=== PATIENT | female | born 1965 | race American Indian/Alaskan Native ===

== ENCOUNTER 2017-07-14 09:20 | Emergency (ER) | payer SELFPAY ==
--- NOTE | 2017-07-14 10:13 | Emergency Department Report ---
ED ENT HPI - General Chief complaint: Earache Stated complaint: EAR BLOCKAGE/ACHING Time Seen by Provider: 07/14/17 09:30 Source: patient Mode of arrival: Ambulatory Limitations: No Limitations - History of Present Illness Initial comments: PT c/o earache for over a week. PT states she was seen in [place], [place] and given ear drops. PT states she has been using the ear drops but now her ear feels plugged up. PT states she does water aerobics and she has frequent OE and this does not feel like OE. MD complaint: ear pain -: Gradual, week(s) (1.5) Location: R ear Severity scale (0 -10): 3 Quality: stabbing Consistency: constant Improves with: none Worsens with: other (laying on R side ) Context- Ear: recent illness Associated Symptoms: denies: fever, toothache, pain with swallowing, sore throat , discharge from ear - Related Data Previous Rx's Medication Instructions Recorded Last Taken Type Amoxicillin 500 mg PO BID #20 capsule 07/14/17 Unknown Rx Allergies Allergy/AdvReac Type Severity Reaction Status Date / Time gabapentin Allergy Unknown Verified 07/14/17 09:29 lisinopril Allergy Unknown Verified 07/14/17 09:29 ED Dental HPI - General Chief complaint: Earache Stated complaint: EAR BLOCKAGE/ACHING Time Seen by Provider: 07/14/17 09:30 Source: patient Mode of arrival: Ambulatory Limitations: No Limitations - Related Data Previous Rx's Medication Instructions Recorded Last Taken Type Amoxicillin 500 mg PO BID #20 capsule 07/14/17 Unknown Rx Allergies Allergy/AdvReac Type Severity Reaction Status Date / Time gabapentin Allergy Unknown Verified 07/14/17 09:29 lisinopril Allergy Unknown Verified 07/14/17 09:29 ED Review of Systems ROS: Stated complaint: EAR BLOCKAGE/ACHING Other details as noted in HPI Comment: All other systems reviewed and negative Constitutional: denies: fever, malaise ENT: as per HPI, ear pain. denies: throat pain Cardiovascular: denies: chest pain Gastrointestinal: denies: vomiting Skin: denies: rash ED Past Medical Hx - Past Medical History Previous Medical History?: Yes Hx Hypertension: Yes Additional medical history: Back pain - Surgical History Past Surgical History?: Yes Additional Surgical History: 3 back surgeries, 1 right hip surgery, Neck surgery - Social History Smoking Status: Never Smoker Substance Use Type: Alcohol, Prescribed - Medications Home Medications: Home Medications Medication Instructions Recorded Confirmed Last Taken Type Amoxicillin 500 mg PO BID #20 capsule 07/14/17 Unknown Rx ED Physical Exam - General Limitations: No Limitations General appearance: alert, in no apparent distress - Head Head exam: Present: atraumatic, normocephalic, normal inspection - Eye Eye exam: Present: normal appearance, PERRL, EOMI. Absent: conjunctival injection - ENT ENT exam: Present: normal orophraynx, mucous membranes moist, normal external ear exam - Expanded ENT Exam Expanded TM/Canal exam: Erythema: Right TM, Bulging: Right TM, Effusion: Right TM, Loss of Landmarks: Right TM Mouth exam: Absent: drooling, trismus Throat exam: Positive: normal inspection. Negative: tonsillar erythema, tonsillomegaly, tonsillar exudate - Neck Neck exam: Present: normal inspection, full ROM. Absent: tenderness, lymphadenopathy - Respiratory Respiratory exam: Present: normal lung sounds bilaterally. Absent: respiratory distress, chest wall tenderness, accessory muscle use - Cardiovascular Cardiovascular Exam: Present: regular rate, normal rhythm, normal heart sounds - GI/Abdominal GI/Abdominal exam: Present: soft. Absent: tenderness - Extremities Exam Extremities exam: Present: normal inspection, full ROM - Back Exam Back exam: Present: normal inspection, full ROM. Absent: tenderness, CVA tenderness (R), CVA tenderness (L) - Neurological Exam Neurological exam: Present: alert, oriented X3, normal gait - Psychiatric Psychiatric exam: Present: normal affect, normal mood - Skin Skin exam: Present: warm, dry, intact, normal color ED Course Vital Signs 07/14/17 07/14/17 09:29 10:47 Temperature 98.4 F 98.3 F Pulse Rate 84 73 Respiratory 18 18 Rate Blood Pressure 127/80 Blood Pressure 138/86 [Right] O2 Sat by Pulse 99 100 Oximetry - Reevaluation(s) Reevaluation #1: 07/14/17 10:16 PT aware of abnormal findings on PE, dx and plan of care. PT has no questions at this time. - Pulse Oximetry Interpretation Digit-Finger Initial Pulse Oximetry Readin Actions Taken: none ED Medical Decision Making - Differential Diagnosis om, oe, cerumen impaction Critical Care Time: No Critical care attestation.: If time is entered above; I have spent that time in minutes in the direct care of this critically ill patient, excluding procedure time. ED Disposition Clinical Impression: Right otitis media with effusion Disposition: TO HOME OR SELFCARE Is pt being admited?: No Does the pt Need Aspirin: No Condition: Stable Instructions: Otitis Media (ED) Prescriptions: Amoxicillin 500 mg PO BID #20 capsule Referrals: MALCOLM REED MD [Staff Physician] - 3-5 Days [facility] [Outside] - 3-5 Days Forms: Work/School Release Form(ED) Time of Disposition: 10:17
[2017-07-14 10:48] VITALS: BP 138/86
== END 2017-07-14 10:48 | disposition home or self-care (01) ==
LOC: ED 09:20
DX: H65.91 Unspecified nonsuppurative otitis media, right ear (principal); I10 Essential (primary) hypertension; Z88.8 Allergy status to other drugs, medicaments and biological substances
CPT/HCPCS: 99282